=== PATIENT | male | born 1945 | race Caucasian/White ===

== ENCOUNTER 2017-12-14 10:33 | Emergency (ER) | payer MEDICARE ==
[2017-12-14 11:08] VITALS: BP 161/68
--- NOTE | 2017-12-14 12:22 | UC ---
FLU HPI - HPI Summary HPI Summary: 3 DAYS OF COUGH, CONGESTION, FATIGUE, PLASCENCIA, MYALGIAS. NO FEVER, N/V/D. IS UP TO DATE FLU SHOT. HERE VISITING FROM [place]. RETURNS IN 3 DAYS. - History of Current Complaint Chief Complaint: UCRespiratory Stated Complaint: FLU SYMPTOMS Time Seen by Provider: 12/14/17 11:46 Hx Obtained From: Patient Onset/Duration: Gradual Onset, Lasting Days Severity Currently: Mild Severity Initially: Mild Pain Intensity: 1 Pain Scale Used: 0-10 Numeric Associated Signs & Symptoms: Positive: Myalgia, Cough, Nasal Congestion, Headache. Negative: Fever - Allergy/Home Medications Allergies/Adverse Reactions: Allergies Allergy/AdvReac Type Severity Reaction Status Date / Time No Known Allergies Allergy Verified 12/14/17 11:00 Home Medications: Home Medications Amlodipine Besylate [Norvasc 2.5 mg tab] 2.5 mg PO DAILY 12/14/17 [History Confirmed 12/14/17] Aspirin [Aspirin Adult Low Dose] 162 mg PO DAILY 12/14/17 [History Confirmed ] Simvastatin [Zocor 40 MG (NF)] 40 mg PO DAILY 12/14/17 [History Confirmed ] PMH/Surg Hx/FS Hx/Imm Hx Cardiovascular History: Hypertension Respiratory History: COPD Other Cancer History: SKIN CANCER - Surgical History Surgical History: Yes Surgery Procedure, Year, and Place: heart, broken collar bone-with plates - Family History Known Family History: Positive: Hypertension - Social History Alcohol Use: None Substance Use Type: None Smoking Status (MU): Former Smoker Review of Systems Constitutional: Fatigue ENT: Nasal Discharge Respiratory: Cough Cardiovascular: Negative Gastrointestinal: Negative Musculoskeletal: Myalgia Neurological: Headache All Other Systems Reviewed And Are Negative: Yes Physical Exam Triage Information Reviewed: Yes Appearance: Well-Appearing, No Pain Distress, Well-Nourished Vital Signs: Initial Vital Signs Temp 98.8 F 12/14/17 11:03 Pulse 78 12/14/17 11:03 Resp 16 12/14/17 11:03 BP 161/68 12/14/17 11:03 Pulse Ox 98 12/14/17 11:03 Vital Signs Reviewed: Yes Eyes: Positive: Conjunctiva Clear ENT: Positive: Hearing grossly normal, Pharynx normal, TMs normal Neck: Positive: Supple, Nontender, No Lymphadenopathy Respiratory Exam: Normal Cardiovascular Exam: Normal Abdomen Description: Positive: Soft Musculoskeletal: Positive: No Edema Neurological: Positive: Alert Psychological: Positive: Age Appropriate Behavior Skin: Negative: rashes Diagnostics - Laboratory Diagnostic Studies Completed/Ordered: FLU SWAB NEGATIVE Flu Course/Dx - Differential Dx/Diagnosis Provider Diagnoses: COPD EXACERBATION Discharge - Discharge Plan Condition: Stable Disposition: HOME Prescriptions: Albuterol HFA INHALER* [Ventolin HFA Inhaler*] 2 puff INH Q4H PRN #1 mdi PRN Reason: Shortness Of Breath Azithromycin 500 mg PO DAILY #5 tab predniSONE TAB* [Deltasone TAB*] 40 mg PO DAILY #10 tab Patient Education Materials: COPD (Chronic Obstructive Pulmonary Disease) (ED) Referrals: No Primary Care Phys,NOPCP [Primary Care Provider] - Additional Instructions: FLU SWAB NEGATIVE WILL COVER FOR COPD EXACERBATION WITH ANTIBIOTICS, PREDNISONE AND INHALER. GO TO ER WITHOUT FAIL IF YOU DEVELOP WORSENING SHORTNESS OF BREATH, CHEST PAIN, NAUSEA, SWEATS, DIZZINESS OR ANY OTHER CONCERNING SYMPTOMS. YOUR BLOOD PRESSURE WAS ELEVATED TODAY (161/68). THIS MAY BE DUE TO YOUR ACUTE CONDITION. MONITOR AND FOLLOW-UP WITH YOUR PCP BACK HOME IN [place] WHEN YOU RETURN NEXT WEEK IF IT HAS NOT RETURNED TO NORMAL.
== END 2017-12-14 12:20 | disposition home or self-care (01) ==
LOC: UCEAST 10:33
DX: J44.1 Chronic obstructive pulmonary disease with (acute) exacerbation (principal); Z87.891 Personal history of nicotine dependence; I10 Essential (primary) hypertension; Z85.828 Personal history of other malignant neoplasm of skin
CPT/HCPCS: 87502; 99202; G0463